=== PATIENT | female | born 1940 | race Caucasian/White ===

== ENCOUNTER 2025-08-15 13:52 | Emergency (ER) | payer MEDICARE | END 2025-08-15 14:33 | disposition home or self-care (01) | LOC: MADERS 13:52 | DX: I95.9 Hypotension, unspecified (principal); T46.5X5A Adverse effect of other antihypertensive drugs, initial encounter; I10 Essential (primary) hypertension; Z79.899 Other long term (current) drug therapy; Z95.1 Presence of aortocoronary bypass graft | CPT/HCPCS: 99284 ==